=== PATIENT | male | born 1960 | race Asian ===

== ENCOUNTER 2023-12-21 12:50 | Emergency (ER) | payer MEDICARE ==
[~2023-12-21] VITALS: Ht 172.7 cm; Wt 94.3 kg
[2023-12-21] MEDS: IV NS 0.9% 1,000 ML BAG IV ONE (13:21)
[2023-12-21 13:47] LABS: BASOPHILS % (AUTO) 0.5 % (0.0-2.0); EOSINOPHILS # (AUTO) 0.1 K/uL (0.0-0.7); EOSINOPHILS % (AUTO) 1.8 % (0.0-6.0); HEMATOCRIT 49 % (39-51); HEMOGLOBIN 16.3 g/dL (13.5-17.5); LYMPHOCYTES # (AUTO) 1.4 K/uL (0.8-4.8); LYMPHOCYTES % (AUTO) 16.5 % (20.0-44.0); MEAN CORPUSCULAR HEMOGLOBIN 32 PG (26.0-33.0); MEAN CORPUSCULAR HGB CONC 33 g/dl (31.0-36.0); MEAN CORPUSCULAR VOLUME 97 fL (80-96); MONOCYTES # (AUTO) 0.6 K/uL (0.1-1.30); MONOCYTES % (AUTO) 6.7 % (2.0-12.0); NEUTROPHILS # (AUTO) 6.2 K/uL (1.8-8.9); NEUTROPHILS % (AUTO) 74.5 % (43.0-81.0); PLATELET COUNT (AUTO) 167 K/uL (150-450); RED BLOOD CELL COUNT(AUTO) 5.08 MIL/uL (4.5-6.0); RED CELL DISTRIBUTION WIDTH 13.5 % (11.5-15.0); WHITE BLOOD COUNT (AUTO) 8.3 K/uL (4.3-11.0)
[2023-12-21 14:00] LABS: CALCIUM, SERUM 8.6 mg/dL (8.5-10.1); CARBON DIOXIDE 31 mmol/L (21-32); CHLORIDE 107 mmol/L (98-107); CREATININE 0.9 mg/dL (0.6-1.3); GLUCOSE 86 mg/dL (74-106); POTASSIUM 4.2 mmol/L (3.5-5.1); SODIUM SERUM 142 mmol/L (136-145); UREA NITROGEN, BLOOD 17 mg/dL (7-18)
[2023-12-21 14:12] LABS: ALANINE AMINOTRANSFERASE 9 U/L (12-78); ALBUMIN 3.8 g/dL (3.4-5.0); ALKALINE PHOSPHATASE 72 U/L (46-116); ASPARTATE AMINOTRANSFERASE 25 U/L (15-37); BILIRUBIN,DIRECT 0.3 mg/dL (0.0-0.2); BILIRUBIN,TOTAL 0.9 mg/dL (0.2-1.0); NT-PRO BNP 66 pg/mL (0-125); TOTAL PROTEIN, SERUM 6.6 g/dL (6.4-8.2)
[2023-12-21 14:41] LABS: APPEARANCE,URINE CLEAR (CLEAR); BILIRUBIN,URINE NEGATIVE (NEGATIVE); BLOOD, URINE NEGATIVE Ery/uL (NEGATIVE); COLOR,URINE YELLOW (YELLOW); KETONES,URINE NEGATIVE (NEGATIVE); LEUKOCYTE ESTERASE ,URINE NEGATIVE (NEGATIVE); NITRITE, URINE NEGATIVE (NEGATIVE); PROTEIN,URINE NEGATIVE (NEGATIVE); UGLUCOSE NEGATIVE (NEGATIVE); UROBILINOGEN,URINE 0.2 EU/dL (0.2)
[2023-12-21] MEDS ORDERED: IV NS 0.9% 250 ML IV ONE (18:01)
[2023-12-21] MEDS ORDERED: IOHEXOL-350 100 ML VIAL IV ONE (18:01)
[2023-12-22 00:28] VITALS: BP 110/83; TEMP 98; O2SAT 95
== END 2023-12-22 00:29 ==
LOC: ER 12:55
DX: I95.9 Hypotension, unspecified (principal); R09.02 Hypoxemia; R07.9 Chest pain, unspecified; F17.200 Nicotine dependence, unspecified, uncomplicated; F20.9 Schizophrenia, unspecified; Z20.822 Contact with and (suspected) exposure to COVID-19
CPT/HCPCS: 99285; 96360; 71275; 71045; 87426; 93005; 85025; 80048; 87040; 87086; 83605; 80076; 85378; 81003; 36415; 84484; 83880; J7030; J7050; Q9967

== ENCOUNTER 2024-11-22 12:18 | Inpatient (IN) | payer MEDICARE, OTHER ==
[~2024-11-22] VITALS: Ht 172.7 cm; Wt 89.8 kg
[2024-11-22] MEDS: IV NS 0.9% 1,000 ML BAG IV ONE (12:40)
[2024-11-22 12:47] LABS: PLATELET COUNT (AUTO) 182 K/uL (150-450); RED BLOOD CELL COUNT(AUTO) 4.76 MIL/uL (4.5-6.0); RED CELL DISTRIBUTION WIDTH 13.3 % (11.5-15.0); WHITE BLOOD COUNT (AUTO) 5.1 K/uL (4.3-11.0)
[2024-11-22 12:55] LABS: CALCIUM, SERUM 8.9 mg/dL (8.5-10.1); CREATININE 0.9 mg/dL (0.6-1.3); SODIUM SERUM 139.0 mmol/L (136-145); UREA NITROGEN, BLOOD 14.0 mg/dL (7-18)
[2024-11-22 12:59] LABS: INR 1.05 (0.91-1.10)
[2024-11-22] MEDS: PIPERACILLIN /TAZOBACTAM 3.375 G in IV D5W 50 ML IV ONE (13:00)
[2024-11-22 13:02] LABS: ASPARTATE AMINOTRANSFERASE 18.0 U/L (15-37); TOTAL PROTEIN, SERUM 6.6 g/dL (6.4-8.2)
[2024-11-22 13:03] LABS: LACTIC ACID 0.8 mmol/L (0.4-2.0)
[2024-11-22 13:27] LABS: APPEARANCE,URINE CLEAR (CLEAR); BLOOD, URINE NEGATIVE Ery/uL (NEGATIVE); LEUKOCYTE ESTERASE ,URINE NEGATIVE (NEGATIVE); NITRITE, URINE NEGATIVE (NEGATIVE); UGLUCOSE NEGATIVE (NEGATIVE)
[2024-11-22] MEDS ORDERED: METO25TA6 PO (14:02)
[2024-11-22] MEDS ORDERED: ATOR20TA PO (14:02)
[2024-11-22] MEDS ORDERED: CLOZ100T32 PO (14:02)
[2024-11-22] MEDS ORDERED: SEMA0.25 SQ (14:02)
[2024-11-22] MEDS ORDERED: RISP2TAB85 PO (14:02)
[2024-11-22] MEDS ORDERED: [UNRECOGNIZED DRUG - OTHER] PO (14:02)
[2024-11-22] MEDS ORDERED: PARO-64 PO (14:02)
[2024-11-22] MEDS ORDERED: ONDANSETRON HCL/PF 4 MG/2 ML VIAL IVP PRN (14:30)
[2024-11-22] MEDS ORDERED: MAG HYDROX/AL HYDROX/SIMETH 30 ML UDC PO PRN (14:30)
[2024-11-22] MEDS ORDERED: MAGNESIUM HYDROXIDE 30 ML UDC PO PRN (14:30)
[2024-11-22] MEDS ORDERED: ACETAMINOPHEN 325 MG TABLET PO PRN (14:30)
[2024-11-22 16:00] VITALS: BP 118/83; TEMP 97.9; O2SAT 89
[2024-11-22] MEDS: IV NS 0.9% 1,000 ML IV PRN (17:15)
[2024-11-22 17:38] LABS: AMPHETAMINE, URINE NEGATIVE (NEGATIVE); BARBITURATE, URINE NEGATIVE (NEGATIVE); BENZODIAZEPINE, URINE NEGATIVE (NEGATIVE); CANNABINOID, URINE NEGATIVE (NEGATIVE); COCCAINE, URINE NEGATIVE (NEGATIVE); OPIATE, URINE NEGATIVE (NEGATIVE)
[2024-11-22] MEDS ORDERED: SEMAGLUTIDE 2 MG SQ SCH (18:00)
[2024-11-22 20:33] VITALS: BP 118/87; TEMP 97.9; O2SAT 97
[2024-11-22] MEDS: CLOZAPINE 100 MG TABLET PO SCH (21:03)
[2024-11-22] MEDS: PAROXETINE HCL 20 MG TABLET PO SCH (21:03)
[2024-11-23 04:48] VITALS: BP 114/82; TEMP 97.7; O2SAT 96
[2024-11-23 04:49] VITALS: BP 120/83
[2024-11-23 04:50] VITALS: BP 90/76
[2024-11-23] MEDS: PANTOPRAZOLE 40 MG TABLET.DR PO SCH (06:33)
[2024-11-23 07:34] LABS: PLATELET COUNT (AUTO) 178 K/uL (150-450); RED BLOOD CELL COUNT(AUTO) 4.74 MIL/uL (4.5-6.0); RED CELL DISTRIBUTION WIDTH 13.1 % (11.5-15.0); WHITE BLOOD COUNT (AUTO) 5.8 K/uL (4.3-11.0)
[2024-11-23 07:56] LABS: CALCIUM, SERUM 8.5 mg/dL (8.5-10.1); CREATININE 0.8 mg/dL (0.6-1.3); PHOSPHORUS 3.0 mg/dL (2.5-4.9); SODIUM SERUM 147.0 mmol/L (136-145); UREA NITROGEN, BLOOD 9.0 mg/dL (7-18)
[2024-11-23 08:02] LABS: LDL 41.0 mg/dL (0-99)
[2024-11-23 08:37] VITALS: BP 109/76; TEMP 97.6; O2SAT 93
[2024-11-23] MEDS: DOCUSATE SODIUM 100 MG CAPSULE PO SCH (08:45)
[2024-11-23] MEDS: METOPROLOL TARTRATE 25 MG TABLET PO SCH (08:47)
[2024-11-23] MEDS: ATORVASTATIN 10 MG TABLET PO SCH (08:50)
[2024-11-23] MEDS ORDERED: POTASSIUM CHLORIDE 20 MEQ TAB.PRT.SR PO ONE (10:30)
[2024-11-23 16:10] VITALS: BP 102/77; TEMP 98.2; O2SAT 95
[2024-11-23 20:00] VITALS: BP_SYST 104; BP_SYST 164; BP_DIAS 74; TEMP 97.9; O2SAT 94
[2024-11-24 06:44] LABS: PLATELET COUNT (AUTO) 191 K/uL (150-450); RED BLOOD CELL COUNT(AUTO) 4.81 MIL/uL (4.5-6.0); RED CELL DISTRIBUTION WIDTH 13.3 % (11.5-15.0); WHITE BLOOD COUNT (AUTO) 7.5 K/uL (4.3-11.0)
[2024-11-24 07:29] LABS: CALCIUM, SERUM 9.2 mg/dL (8.5-10.1); CREATININE 0.8 mg/dL (0.6-1.3); NT-PRO BNP 89.0 pg/mL (0-125); PHOSPHORUS 3.3 mg/dL (2.5-4.9); SODIUM SERUM 144.0 mmol/L (136-145); UREA NITROGEN, BLOOD 8.0 mg/dL (7-18)
[2024-11-24 08:00] VITALS: BP 106/81; TEMP 97.9; O2SAT 94
[2024-11-24 14:00] VITALS: BP_SYST 88; BP_SYST 97; BP_SYST 99; BP_DIAS 62; BP_DIAS 73; BP_DIAS 74; TEMP 98.3; TEMP 98.5; O2SAT 94; O2SAT 95
[2024-11-24 16:00] VITALS: BP 99/75; TEMP 98.6; O2SAT 100
[2024-11-24 20:00] VITALS: BP_SYST 187; BP_SYST 78; BP_DIAS 61; BP_DIAS 63; TEMP 97.9; TEMP 98.4; O2SAT 92; O2SAT 96
[2024-11-24 20:30] VITALS: BP 90/60
[2024-11-25] VITALS: BP 92/73; O2SAT 92
[2024-11-25 06:10] LABS: PLATELET COUNT (AUTO) 169 K/uL (150-450); RED BLOOD CELL COUNT(AUTO) 4.75 MIL/uL (4.5-6.0); RED CELL DISTRIBUTION WIDTH 13.3 % (11.5-15.0); WHITE BLOOD COUNT (AUTO) 6.6 K/uL (4.3-11.0)
[2024-11-25 06:36] LABS: CALCIUM, SERUM 9.2 mg/dL (8.5-10.1); CREATININE 1.0 mg/dL (0.6-1.3); SODIUM SERUM 144.0 mmol/L (136-145); UREA NITROGEN, BLOOD 12.0 mg/dL (7-18)
[2024-11-25] MEDS: LEVOTHYROXINE SODIUM 25 MCG TABLET PO SCH (07:33)
[2024-11-25 08:00] VITALS: BP 90/66; TEMP 98.2; O2SAT 94
[2024-11-25 14:20] VITALS: BP_SYST 83; BP_SYST 90; BP_SYST 94; BP_DIAS 61; BP_DIAS 67; BP_DIAS 70; TEMP 98.2; TEMP 98.5; O2SAT 95
[2024-11-25 20:00] VITALS: BP 85/61; TEMP 98.4; O2SAT 92
[2024-11-25 21:09] VITALS: BP_SYST 80; BP_SYST 90; BP_DIAS 50; BP_DIAS 60; BP_DIAS 70
[2024-11-26 01:46] VITALS: BP 98/69; O2SAT 97
[2024-11-26 05:56] LABS: PLATELET COUNT (AUTO) 153 K/uL (150-450); RED BLOOD CELL COUNT(AUTO) 4.50 MIL/uL (4.5-6.0); RED CELL DISTRIBUTION WIDTH 13.1 % (11.5-15.0); WHITE BLOOD COUNT (AUTO) 5.9 K/uL (4.3-11.0)
[2024-11-26 06:58] LABS: CALCIUM, SERUM 8.7 mg/dL (8.5-10.1); CREATININE 0.8 mg/dL (0.6-1.3); SODIUM SERUM 145.0 mmol/L (136-145); UREA NITROGEN, BLOOD 16.0 mg/dL (7-18)
[2024-11-26 08:00] VITALS: BP 100/75; TEMP 98.2; O2SAT 97
[2024-11-26 09:17] VITALS: BP_SYST 78; BP_SYST 93; BP_DIAS 52; BP_DIAS 63; BP_DIAS 65; O2SAT 97
[2024-11-26 10:20] VITALS: BP_SYST 80; BP_SYST 90; BP_SYST 95; BP_DIAS 55; BP_DIAS 60; BP_DIAS 65; O2SAT 97
[2024-11-26 16:00] VITALS: BP 90/74; TEMP 98.2; O2SAT 96
[2024-11-26 20:00] VITALS: BP_SYST 110; BP_SYST 116; BP_SYST 85; BP_SYST 92; BP_DIAS 60; BP_DIAS 65; BP_DIAS 74; BP_DIAS 85; TEMP 97.3; TEMP 97.7; O2SAT 97
[2024-11-27 08:00] VITALS: BP 102/72; TEMP 98.1; O2SAT 96
[2024-11-27 08:31] VITALS: BP 102/76; TEMP 98.1; O2SAT 94
[2024-11-27 10:52] VITALS: BP_SYST 102; BP_SYST 78; BP_SYST 92; BP_DIAS 50; BP_DIAS 71; BP_DIAS 80; TEMP 98.1; O2SAT 98
== END 2024-11-27 17:22 | DRG 641 ==
LOC: ER 12:20 → TELE 13:39 → MED 11-23 10:38
PROVIDERS: ADMIT Nurse Practitioner Family; ATTEND Nurse Practitioner Acute Care
DX: E86.0 Dehydration (principal); I95.9 Hypotension, unspecified; E66.9 Obesity, unspecified; E78.5 Hyperlipidemia, unspecified; F39 Unspecified mood [affective] disorder; I10 Essential (primary) hypertension; F31.9 Bipolar disorder, unspecified; I71.21 Aneurysm of the ascending aorta, without rupture; E03.9 Hypothyroidism, unspecified; F20.9 Schizophrenia, unspecified; E80.6 Other disorders of bilirubin metabolism; Z95.1 Presence of aortocoronary bypass graft; R42 Dizziness and giddiness; Z68.30 Body mass index [BMI] 30.0-30.9, adult
CPT/HCPCS: 36415; 71045-TC; 80048-TC; 80061-TC; 80076-TC; 83605-TC; 83735-TC; 83880; 84100-TC; 84439-TC; 84443-TC; 84484-TC; 85025-TC; 85730-TC; 87040-TC; 87081-TC; 87086-TC; 93307-TC; 97116-TC; 97530-TC; A4223; G0378; G0480; J2543; J7030; J7060